=== PATIENT | male | born 1945 | race Caucasian/White ===

== ENCOUNTER → 2016-09-20 | Outpatient (CLI) | payer OTHER, MEDICARE | LOC: FIMAGING 09:07 | PROVIDERS: ATTEND Physician Assistant | DX: J18.9 Pneumonia, unspecified organism (principal) ==

== ENCOUNTER 2016-11-05 12:32 | Emergency (ER) | payer OTHER, MEDICARE ==
[2016-11-05 12:40] VITALS: RESP 16; TEMP 98.1
--- NOTE | 2016-11-05 14:04 | CPEKG ---
Heart Rate: 68 RR Interval: 882 P-R Interval: 192 QRSD Interval: 102 QT Interval: 412 QTC Interval: 439 P Rupert: 45 QRS Rupert: -34 T Wave Rupert: 4 EKG Severity - BORDERLINE ECG - EKG Impression: SINUS RHYTHM EKG Impression: LEFT AXIS DEVIATION EKG Impression: BORDERLINE T ABNORMALITIES, ANTERIOR LEADS Electronically Signed By: Tanner Palmer 05-Nov-2016 14:34:52
--- NOTE | 2016-11-05 14:10 | EDPHY ---
H & P Stated Complaint: Positional vertigo x 1 wk - Medical/Surgical History Hx Asthma: No Hx Chronic Respiratory Disease: No Hx Diabetes: No Hx Cardiac Disease: No Hx Renal Disease: No Hx Cirrhosis: No Hx Alcoholism: No Hx HIV/AIDS: No Hx Splenectomy or Spleen Trauma: No Other PMH: HTN, GERD, hypercholesterol, metabolic syndrome - Social History Smoking Status: Never smoked Time Seen by Provider: 11/05/16 14:10 Constitutional: Initial Vital Signs Temperature (C) 36.7 C 11/05/16 12:38 Heart Rate 79 11/05/16 12:38 Respiratory Rate 16 11/05/16 12:38 Blood Pressure 145/76 H 11/05/16 12:38 O2 Sat (%) 94 11/05/16 12:38 O2 Delivery Mode Room Air Allergies/Adverse Reactions: No Known Allergies Allergy (Verified 11/05/16 12:34) Home Medications: Medication Instructions Recorded Hydrochlorothiazide [HCTZ (*)] 25 mg PO DAILY 10/06/14 Zolpidem Tartrate [Ambien 5MG (*)] 10 mg PO HS PRN 10/06/14 amLODIPine BESYLATE [Norvasc 10 mg 10 mg PO DAILY 10/06/14 (*)] metFORMIN HCL [Glucophage 500 mg 1,000 mg PO BIDMEAL 10/06/14 (*)] Aspirin EC [Aspirin EC 81 mg (*)] 81 mg PO BID #60 tab 10/20/14 Meclizine HCl [Meclizine HCl 25 mg 25 mg PO BID #10 tab 11/05/16 (RX,OTC)] Medical Decision Making - Diagnostics Imaging Results: Imaging Impressions Brain MRI 11/05/16 14:14 Impression: 1. Mild cerebral cerebral atrophy. 2. No acute infarct, hemorrhage, hydrocephalus, mass effect, or herniation. 3. Several nonspecific hyperintense T2/FLAIR signal abnormalities in the white matter of bilateral cerebral hemispheres. Differential diagnosis includes moderate microvascular ischemic gliosis, post-infectious/post-inflammatory sequela, atypical demyelinating disease, or migraine-related sequela. 4. Old left frontal lobe infarct. 5. No acute brainstem or cerebellar infarct. Findings and recommendations discussed with Emergency Department physician, Giovanni Clements at 16:05 hour, 11/05/2016. Final report concurs with initial preliminary interpretation. ED Course/Re-evaluation: CHIEF COMPLAINT: Dizziness HISTORY OF PRESENT ILLNESS: This patient is a 71 year old male who presents to the Emergency Department complaining of acute dizziness beginning one week prior to arrival and remaining persistent over time. He describes his dizziness as exacerbated when moving around: "I'm having a hard time navigating in space. " He is able to move his head without exacerbating his symptoms. He denies associated nausea. He does have a history of dizziness but expresses that this episode is far worse. REVIEW OF SYSTEMS: A 10 point review of systems was performed and is negative with the exception of the elements mentioned in the history of present illness. PHYSICAL EXAM: HR 79, BP 145/76, O2 Sat 94, RR 16. Temp noted General Appearance: Alert, well hydrated, appropriate, and non-toxic appearing. Head: Atraumatic without scalp tenderness or obvious injury Eyes: Pupils equal, round, reactive to light and accommodation, EOMI, no trauma , no injection. Ears: Clear bilaterally, no perforation, normal landmarks Nose: Atraumatic, no rhinorrhea, clear. Throat: There is no erythema or exudates, no lesions, normal tonsils, mucus membranes moist. Neck: Supple, 2+ carotid upstroke, nontender, no lymphadenopathy. Respiratory: No retractions, no distress, no wheezes, and no accessory muscle use. Lungs are clear to auscultation bilaterally. Cardiovascular: Regular rate and rhythm, no murmurs, rubs, or gallops. Bilateral carotid, radial, dorsalis pedis, and posterior tibial pulses intact. Good capillary refill all extremities. Gastrointestinal: Abdomen is soft, nontender, non-distended, no masses, no rebound, no guarding, no peritoneal signs. Musculoskeletal: Normal active ROM of all extremities, atraumatic. Neurological: Alert, appropriate, and interactive. The patient has normal DTRs and non-focal cranial nerves, motor, sensory, and cerebellar exam. Skin: No rashes, good turgor, no nodules on palpation. Past medical history: Hypertension, hypercholesteremia, metabolic syndrome, GERD Past surgical history: Denies Family history: Non-contributory Social history: . Lives in [place]. DIFFERENTIAL DIAGNOSIS: The differential diagnosis for the patient's dizziness included but was not limited to peripheral and central causes of vertigo, orthostatic causes including dehydration, cardiogenic and neurogenic causes, and blood loss. EKG INTERPRETATION: The 12 lead EKG was interpreted by myself: Sinus rhythm, rate 68; no ischemic changes. See hard copy and/or "tracemaster" electronic copy for interpretation. MEDICAL DECISION MAKING: This 71 year old male presents complaining of dizziness that he describes as confusion regarding his "place in space." He has a history of dizziness spells but describes this as different - more severe and longer lasting - than previous episodes. He has no associated symptoms. Although movement of his entire body appears to exacerbate his symptoms, movement of his head does not exacerbate his dizziness. Given this, will proceed to treat with Meclizine and proceed with MRI of the brain to rule out cerebellar etiology. 25mg PO Meclizine HCL administered. (Tanner Palmer) 1614: This patient was signed over to me at 3:00 p.m. shift change. Patient is pending MRI results of his brain. These were called to me by Dr. Menon. The MRI brain for posterior circulation stroke or sober stroke is negative there is no acute bleed or infarct. I did go and speak with the patient he does feel comfortable going home with meclizine. I do recommend he follows up with his primary care doctor a possible ENT referral for vertigo. He is comfortable this plan. (Giovanni Clements) - Data Points Laboratory Results: Laboratory Results 11/05/16 14:35 11/05/16 14:35 11/05/16 11/05/16 14:35 14:35 WBC 5.62 10^3/uL 10^3/uL (3.80-9.50) RBC 4.96 10^6/uL 10^6/uL (4.40-6.38) Hgb 16.1 g/dL g/dL (13.7-17.5) Hct 45.2 % % (40.0-51.0) MCV 91.1 fL fL (81.5-99.8) MCH 32.5 pg pg (27.9-34.1) MCHC 35.6 g/dL g/dL (32.4-36.7) RDW 12.5 % % (11.5-15.2) Plt Count 167 10^3/uL 10^3/uL (150-400) MPV 10.4 fL fL (8.7-11.7) Neut % (Auto) 68.2 % % (39.3-74.2) Lymph % (Auto) 19.4 % % (15.0-45.0) Andrew % (Auto) 9.8 % % (4.5-13.0) Eos % (Auto) 1.8 % % (0.6-7.6) Baso % (Auto) 0.4 % % (0.3-1.7) Nucleat RBC Rel Count 0.0 % % (0.0-0.2) Absolute Neuts (auto) 3.84 10^3/uL 10^3/uL (1.70-6.50) Absolute Lymphs (auto) 1.09 10^3/uL 10^3/uL (1.00-3.00) Absolute Monos (auto) 0.55 10^3/uL 10^3/uL (0.30-0.80) Absolute Eos (auto) 0.10 10^3/uL 10^3/uL (0.03-0.40) Absolute Basos (auto) 0.02 10^3/uL 10^3/uL (0.02-0.10) Absolute Nucleated RBC 0.00 10^3/uL 10^3/uL (0-0.01) Immature Gran % 0.4 % % (0.0-1.1) Immature Gran # 0.02 10^3/uL 10^3/uL (0.00-0.10) Sodium 137 mEq/L mEq/L (134-144) Potassium 4.0 mEq/L mEq/L (3.5-5.2) Chloride 99 mEq/L mEq/L (97-110) Carbon Dioxide 26 mEq/l mEq/l (22-31) Anion Gap 12 mEq/L mEq/L (8-16) BUN 16 mg/dL mg/dL (7-23) Creatinine 1.0 mg/dL mg/dL (0.7-1.3) Estimated GFR > 60 Glucose 99 mg/dL mg/dL (70-100) Calcium 9.8 mg/dL mg/dL (8.5-10.4) Medications Given: Discontinued Medications Meclizine HCl (Meclizine Hcl) 25 mg PO EDNOW ONE Stop: 11/05/16 14:15 Last Admin: 05/08/17 14:42 Dose: 25 mg Departure - Departure Disposition: Home, Routine, Self-Care Clinical Impression: Vertigo Condition: Good Instructions: Vertigo (ED) Additional Instructions: 1. Take 25mg Meclizine HCL every 6-8 hours as needed for dizziness. 2. Follow-up with your primary care provider for further evaluation if your symptoms do not resolve in the next 3-5 days. 3. Return to the Emergency Department with severe headache, uncontrollable vomiting, weakness, slurred speech, or for other serious concerns. Referrals: Skyla Churchill MD [Primary Care Provider] - As per Instructions Prescriptions: Meclizine HCl [Meclizine HCl 25 mg (RX,OTC)] 25 mg PO BID #10 tab Report Scribed for: Tanner Palmer Report Scribed by: Yuni Jackson Date of Report: 11/05/16 Time of Report: 14:11
[2016-11-05] MEDS ORDERED: MECLIZINE HCL 25 MG TAB PO ONE (14:14)
[2016-11-05 14:43] LABS: % IMMATURE GRANULYOCYTES 0.4 % (0.0-1.1); ABSOLUTE IMMATURE GRANULOCYTES 0.02 10^3/uL (0.00-0.10); ADD DIFF? NO; ADD MORPH? NO; ADD SCAN? NO; ATYPICAL LYMPHOCYTE FLAG 0 (0-99); FRAGMENT RBC FLAG 0 (0-99); HEMATOCRIT 45.2 % (40.0-51.0); HEMOGLOBIN 16.1 g/dL (13.7-17.5); LEFT SHIFT FLG 0 (0-99); LIPEMIA HEMOLYSIS FLAG 90 (0-99); MEAN CELL HEMOGLOBIN 32.5 pg (27.9-34.1); MEAN CELL HEMOGLOBIN CONCENTR. 35.6 g/dL (32.4-36.7); MEAN CELL VOLUME 91.1 fL (81.5-99.8); MEAN PLATELET VOLUME 10.4 fL (8.7-11.7); PLATELET CLUMPS FLAG 0 (0-99); PLATELET COUNT 167 10^3/uL (150-400); RED BLOOD CELL COUNT 4.96 10^6/uL (4.40-6.38); RED CELL DISTRIBUTION WIDTH 12.5 % (11.5-15.2)
[2016-11-05 15:05] VITALS: O2SAT 91
[2016-11-05 15:05] LABS: ANION GAP 12 mEq/L (8-16); CALCIUM 9.8 mg/dL (8.5-10.4); CARBON DIOXIDE 26 mEq/l (22-31); CHLORIDE 99 mEq/L (97-110); GLOMERULAR FILTRATION RATE > 60; GLUCOSE 99 mg/dL (70-100); SODIUM 137 mEq/L (134-144)
[2016-11-05 16:34] VITALS: BP 151/86; PULSE 76
== END 2016-11-05 16:33 | disposition home or self-care (01) ==
DX: R42 Dizziness and giddiness (principal); I10 Essential (primary) hypertension

== ENCOUNTER → 2017-12-02 | Outpatient (CLI) | payer OTHER, MEDICARE | LOC: FIMAGING 15:33 | PROVIDERS: ATTEND Family Medicine | DX: M16.12 Unilateral primary osteoarthritis, left hip (principal); M75.92 Shoulder lesion, unspecified, left shoulder ==

== ENCOUNTER 2018-06-16 10:48 | Inpatient (IN) | payer OTHER, MEDICARE ==
--- NOTE | 2018-06-15 22:35 | PDGENHP ---
History & Physical Chief Complaint: left shoulder pain History of Present Illness: eloina is a pleasant 72 yo male, presenting today for left total shoulder arthroplasty due to shoulder arthritis by dr. jon Pertinent Past, Social, Family History: SOC: denies smoking, denies rec drugs, etoh occasional. FH: father: malignant neoplastic disase, DM. PMH: arthritis, DM, hernia, HTN, UTI, hx of melanoma. allergies: diclofenac Relevant Physical Exam: L shoulder: 60 ff, 5-/5 empty can, negative bear hug, skin looks healthy, nvgi A/P Assessment: 72 yo M presenting today for left total shoulder arthroplasty by dr. jon due to left total shoulder osteoarthritis -proph: b/l mike cortes, b/l scd's, incentive spirometry -Cefazolin 2gram iv once pre operative -clean/prep/shave surgical site -admit overnight for observation
--- NOTE | 2018-06-16 08:55 | PDHPUP ---
History & Physical Update H&P update statement: This history and physical update is based on an assessment of the patient which was completed after admission or registration (within 24 hours), but prior to the surgery/procedure. H&P update: H&P reviewed & patient examined, no change in patient's condition since H&P completed
[2018-06-16] MEDS ORDERED: LR 1,000 ML IV ONE (11:08)
[2018-06-16] MEDS ORDERED: ceFAZolin 2 GM/DEXTROSE 100 ML IV ONE (11:08)
[2018-06-16] MEDS ORDERED: CEFAZOLIN 2 GM/DEXTROSE/100 ML BAG IV ONE (11:23)
[2018-06-16] MEDS ORDERED: ROPIVACAINE HCL 20 MG/10 ML INJ EP ONE ×2 (11:25→12:30)
[2018-06-16] MEDS ORDERED: EPINEPHrine 1 MG/ML INJ ONE (12:30)
[2018-06-16] MEDS ORDERED: MIDAZOLAM 2 MG/2 ML VIAL IVP ONE (12:45)
[2018-06-16] MEDS ORDERED: MIDAZOLAM 2 MG/2 ML VIAL ONE (12:45)
--- NOTE | 2018-06-16 12:47 | PDANEPAE ---
ANE Past Medical History - Cardiovascular History Hx Hypertension: Yes Hx Arrhythmias: No Hx Chest Pain: No Hx Coronary Artery / Peripheral Vascular Disease: No Hx CHF / Valvular Disease: No Hx Palpitations: No Cardiovascular History Comment: HEART MURMUR IN CHILDHOOD - Pulmonary History Hx COPD: No Hx Asthma/Reactive Airway Disease: No Hx Recent Upper Respiratory Infection: No Hx Oxygen in Use at Home: No Hx Sleep Apnea: No Sleep Apnea Screening Result - Last Documented: Positive - Neurologic History Hx Cerebrovascular Accident: No Hx Seizures: No Hx Dementia: No - Endocrine History Hx Diabetes: No Obesity: moderate Endocrine History Comment: METABOLIC SYNDROME - METFORMIN - Renal History Hx Renal Disorders: No - Liver History Hx Hepatic Disorders: No - Neurological & Psychiatric Hx Hx Neurological and Psychiatric Disorders: No - Cancer History Hx Cancer: Yes Cancer History Comment: MELANOMA ABDOMEN - Congenital Disorder History Hx Congenital Disorders: No - GI History GERD: no Hx Gastrointestinal Disorders: Yes Gastrointestinal History Comment: OCCAS INDIGESTION - Other Health History Other Health History: NEG - Chronic Pain History Chronic Pain: No - Surgical History Prior Surgeries: L HIP REPLACEMENT. FUSION LUMBAR. MELANOMA ABDOMEN REMOVED. UMB HERNIA. SKIN CA REMOVED FACE ANE Review of Systems Review of Systems: - Exercise capacity METS (RN): 5 METS ANE Patient History - Allergies Allergies/Adverse Reactions: diclofenac Allergy (Verified 06/11/18 17:12) Rash - Home Medications Home medications: home medication list seen and reviewed Home Medications: Hydrochlorothiazide [HCTZ (*)] 25 mg PO DAILY 10/06/14 [Last Taken 06/13/18] amLODIPine BESYLATE [Norvasc 10 mg (*)] 10 mg PO DAILY 10/06/14 [Last Taken 09:00] metFORMIN HCL [Glucophage 500 mg (*)] 1,000 mg PO BIDMEAL 10/06/14 [Last Taken 06/13/18] Herbals/Supplements -Info Only 1 ea PO DAILY 06/04/18 [Last Taken 06/11/18] Ibuprofen [Motrin (*)] 200 - 600 mg PO DAILY PRN 06/04/18 [Last Taken 06/13/18] - NPO status NPO Status: no food or drink >8 hours NPO Since - Liquids (Date): 06/15/18 NPO Since - Liquids (Time): 18:00 NPO Since - Solids (Date): 06/15/18 NPO Since - Solids (Time): 18:00 - Anes Hx Anes Hx: no prior problems - Smoking Hx Smoking Status: Never smoked - Family Anes Hx Family Hx Anesthesia Complications: NEG ANE Labs/Vital Signs - Vital Signs Blood Pressure: 150/81 Heart Rate: 59 Respiratory Rate: 16 O2 Sat (%): 92 Height: 167.64 cm Weight: 72.575 kg ANE Physical Exam - Airway Neck exam: FROM Mallampati Score: Class 2 Mouth exam: normal dental/mouth exam - Pulmonary Pulmonary: no respiratory distress, no rales or rhonchi, clear to auscultation - Cardiovascular Cardiovascular: regular rate and rhythym, no murmur, rub, or gallop - ASA Status ASA Status: II ANE Anesthesia Plan Anesthesia Plan: GA w LMA Regional Anesthesia: single shot NB, interscalene BP NB (Pt declines continuous nerve block.)
[2018-06-16] MEDS ORDERED: BUPIVACAINE/EPI 0.25% 30 ML SDV ONE (12:54)
[2018-06-16] MEDS ORDERED: fentaNYL 100 MCG/2 ML INJ ONE ×3 (12:58→16:39)
[2018-06-16] MEDS ORDERED: DEXAMETHASONE 4 MG/ML VIAL ONE ×2 (12:59)
[2018-06-16] MEDS ORDERED: PROPOFOL 200 MG/20 ML VIAL ONE (12:59)
[2018-06-16] MEDS ORDERED: ONDANSETRON 4 MG/2 ML VIAL ONE (13:01)
[2018-06-16] MEDS ORDERED: ROCURONIUM 50 MG/5 ML VIAL ONE (13:53)
[2018-06-16] MEDS ORDERED: LABETALOL HCL 20 MG/4 ML INJ IVP PRN (15:03)
[2018-06-16] MEDS ORDERED: ENALAPRILAT DIHYDRATE 1.25 MG/ML VIAL IVP PRN (15:03)
[2018-06-16] MEDS ORDERED: DIAZEPAM 5 MG/ML 1 ML SYR IVP PRN (15:03)
[2018-06-16] MEDS ORDERED: ONDANSETRON 4 MG/2 ML VIAL IVP PRN ×2 (15:03→15:21)
[2018-06-16] MEDS ORDERED: oxyCODONE IR 5 MG TAB PO PRN (15:03)
[2018-06-16] MEDS ORDERED: LR 500 ML IV PRN (15:03)
[2018-06-16] MEDS ORDERED: NALOXONE HCL 0.4 MG/ML INJ IVP PRN (15:03)
[2018-06-16] MEDS ORDERED: ACETAMINOPHEN 500 MG TAB PO PRN (15:03)
[2018-06-16] MEDS ORDERED: PROMETHAZINE HCL 25 MG/ML INJ IVP PRN (15:03)
[2018-06-16] MEDS ORDERED: HYDROCODONE/APAP 5/325 TAB PO PRN (15:03)
[2018-06-16] MEDS ORDERED: ACETAMINOPHEN 325 MG TAB PO PRN (15:21)
[2018-06-16] MEDS ORDERED: D5W 1/2 NS W/ 20 KCl/L 1,000 ML IV SCH (15:30)
--- NOTE | 2018-06-16 15:31 | POSTOPPROG ---
Post Op Note Date of Operation: 06/16/18 Surgeon: Lee Yee Steam Shovel Operator: aleja león pa-c Anesthesia: LMA Pre-op Diagnosis: left shoulder arthritis Post-op Diagnosis: left shoulder arthritis Procedure: left total shoulder arthroplasty Inf/Abcess present in the surg proc area at time of surgery?: No EBL: 50-100 Complications: none
--- NOTE | 2018-06-16 15:47 | POSTANESTH ---
Post Anesthetic Evaluation Cardiovascular Status: Normal, Stable, Similar to Pre-Op Cond Respiratory Status: Normal, Stable, Similar to Pre-op Cond. Level of Consciousness/Mental Status: Can Participate in Eval, Alert and Oriented Pain Control: Adequate, Prn Tx Ordered Nausea/Vomiting Control: Adequate, Prn Tx Ordered Complications Possibly Related to Anesthesia: None Noted
[2018-06-16] MEDS ORDERED: OXYCODONE/APAP 5/325 TAB ONE ×2 (16:10→17:05)
[2018-06-16] MEDS: fentaNYL 100 MCG/2 ML INJ IVP PRN ×4 (16:14→17:03)
[2018-06-16] MEDS: OXYCODONE/APAP 5/325 TAB PO PRN ×2 (16:19→20:15)
--- NOTE | 2018-06-16 16:26 | GOP ---
DATE OF OPERATION: SURGEON: Lee Yee MD TRANSPORTATION MECHANIC: Robb Newman PA-C., medically required for positioning of the arm during total elpidio ulder. Careful retraction of vital neurovascular structures including the axillary nerve. PREOPERATIVE DIAGNOSIS: Left shoulder osteoarthritis. POSTOPERATIVE DIAGNOSIS: Left shoulder osteoarthritis. PROCEDURE PERFORMED: 1. Left total shoulder replacement. 2. Open loose body removal x4, 1 x 2 cm. 3. Biceps tenodesis. FINDINGS: ESTIMATED BLOOD LOSS: Minimal. INDICATIONS: 72-year-old male with end-stage left shoulder osteoarthritis. Clinical radiographic an d advanced imaging confirm cuff intact with end-stage osteoarthritis. He is MSSA positive. ID recom mended Hibiclens and mupirocin 3-5 days prior to surgery. He adhered to this. Medically cleared for surgery. DESCRIPTION OF PROCEDURE: The patient identified in the preoperative holding area. Consent, lateral ity, and preoperative antibiotics were confirmed and delivered. All questions were answered. The le ft shoulder was identified. His was at the bedside for questions and answers. The patient had an interscalene block. Beach chair position. 30-degree head of bed. All extremitie s well padded. Left upper extremity prepped and draped in the usual sterile fashion. Surgical time- out was performed. Standard Ioban diaper draping. Deltopectoral incision. Found the cephalic vein medially. I took this with the deltoid laterally. I cleaned up the clavipectoral fascia. A Kobel retractor freed up the deltoid adhesions. Found the subscap. Found the biceps. Released the pec tendon about 1.5 cm. Did a biceps tenodesis to the rem ainder of the pec tendon. Did a biceps tenotomy. Opened up the rotator interval. Did a lesser tube rosity osteotomy with a large curved osteotome. Released the capsule. Put a Fukuda. Found the axil cedric nerve. Protected it with Zandra retractor. Did an inferior capsular release. Progressive public health nutritionist al rotation. Discovered many loose bodies on the inferior axillary recess that were retrieved up to 2 cm. We did an osteophytectomy. Found the anatomic neck. Did a humeral neck osteotomy to its norm al anatomic neck, preserving the rotator cuff into the bare spot. We prepped the humerus up to a 10 broach, placed a humeral head protector. The arm was taken out of the Negrete. Placed on a padded Hanna. We finished off the inferior capsulotomy and posterior capsulotomy. We put a Fukuda. We did a labrectomy. We prepped the glenoid with a cannulated Arthrex device. Trialed and then cemented i n a large glenoid. We reduced the head, placed back in the Negrete del cid, dislocated the head, again, and then took o ut the humeral head protector. Drilled 2 holes in the bicipital groove, placed loops of suture throu gh that with the subscap compression technique by Arthrex. We used the pencil impactor and then the head impactor. Found the natural osteotomy. We locked this into place. Trialed a humeral head and found a 54 worked well. Thus we chose the real humeral head with the most offset posterolaterally. We resected the remainder of the osteophytes. Washed out the wound with 500 cc of warm normal saline . Repaired the subscap with a subscap compression technique by Arthrex, top knot, bottom knot, diago nal knots, and medial knots. We closed the rotator interval with 2 [id number] stitches, #2 Fibe rWire. Subcutaneous tissue closure with 3-0 Monocryl, 3-0 Prolene. 20 cc of 0.2% ropivacaine were u sed. Mastisol, Steris, Xeroform, Mepilex dressing applied. IMPLANTS USED: An Arthrex #10 stem, large glenoid with a 54 head. COMPLICATIONS: None. DISPOSITION: Extubated to PACU in stable condition. /[id number]/MODL
[2018-06-16] MEDS ORDERED: oxyCODONE IR 5 MG TAB ONE (17:07)
--- NOTE | 2018-06-16 18:56 | PDMN ---
Medical Necessity Medical necessity: Pt meets IP criteria as of 06/16/2018 per and KURT[facility] S-[id number] shoulder arthroplasty; Medicare IP only procedure
[2018-06-16] MEDS: ceFAZolin 2 GM/DEXTROSE 100 ML IV SCH (20:15)
[2018-06-16] MEDS: DOCUSATE SODIUM 100 MG CAP PO SCH (20:16)
[2018-06-17] MEDS ORDERED: TEMAZEPAM 15 MG CAP PO PRN (00:05)
[2018-06-17] MEDS: OXYCODONE/APAP 5/325 TAB PO PRN ×4 (00:16→12:15)
[2018-06-17] MEDS: ceFAZolin 2 GM/DEXTROSE 100 ML IV SCH (04:32)
--- NOTE | 2018-06-17 08:20 | PDDCSUM ---
Discharge Summary Discharge Summary: Admitted 06/16/18 Discharged 06/17/19 pre op diagnosis: left shoulder arthritis post op diagnosis: left shoulder arthritis procedure: left total shoulder arthroplasty by dr. 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, he reports the pain is controlled with pain meds which the nurse should be bringing him his next dose soon, denies any fevers/chills, denies cp/sob, denies falls/injuries, reports he is wearing his sling as instructed, voiding without issues, hasn't had a bowel movement yet, but passing gas O: sling in place, dressings c/d/i, no visible drainage or signs of infection, appropriately ttp, no shoulder rom assessed, full wrist/digit rom w/o pain, grossly nvid w/ resistance against wrist extension A/P 72 yo male s/p left total shoulder arthroplasty by dr jon on 06/17, pod #1 , doing well w/o issues -plan for discharge today if tolerating oral pain meds, cleared by pt/ot -LUE: 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
[2018-06-17] MEDS ORDERED: ENOXAPARIN 40 MG/0.4 ML SYR SC SCH (09:00)
[2018-06-17] MEDS: DOCUSATE SODIUM 100 MG CAP PO SCH (09:28)
--- NOTE | 2018-06-17 11:02 | ASDISCHSUM ---
Discharge Information Plan Status:Home with No Needs Medically Cleared to Leave:06/16/2018 Discharge Date:06/16/2018 CM D/C Disposition:Home, Routine, Self-Care ADT D/C Disposition:Home, Routine, Self-Care Projected Discharge Date:06/17/2018 12:00 AM Transportation at D/C:Family Discharge Delay Reason: Follow-Up Date:06/17/2018 12:00 AM Discharge Slot: Final Diagnosis: Placement Information Patient Contact Information Contact Name:KB Relationship: [address] City:[place] Alternate Phone: [facility]/Zip Code:[place] [address] Email: Financial Information Financial Class:Medicare Primary Plan Desc:MEDICARE INPATIENT Primary Plan Number:[id number] Secondary Plan Desc:JARETT/TAI SUPPLEMENT Secondary Plan Number:[id number] Assessment Information LACE LACE Length of stay for Answers: Less than 1 day current admission Acuity / Level of Answers: Yes Care: Did the patient have an inpatient admission? Comorbidities - select Answers: Other Notes: HTN all that apply # of Emergency department Answers: 0 visits in the last 6 months Score: 4 Date Signed: 06/17/2018 11:00 AM Electronically Signed By:ADAN Pham Case Management Discharge Plan Note Case Management Discharge Discharge Order Complete? Answers: Yes Patient to Obtain Answers: via Family Medications Transportation Arranged Answers: Family/Friends Discharge Comments Notes: Pt being discharged independent. No CM needs identified. Family to transport. Date Signed: 06/17/2018 11:02 AM Electronically Signed By:ADAN Pham Intervention Information Intervention Type:*Incorrect Registration Date of Service:06/16/2018 06:50 PM Patient Type:Observation Staff Member:Zully Shelley Hours: Discipline: Severity: Comment:
[2018-06-17] MEDS ORDERED: PNEUMOC 13-VAL CONJ-DIP CRM/PF 0.5 ML SYR (PREVNAR 13) IM ONE (12:26)
[2018-06-17 13:05] VITALS: BP 136/71
== END 2018-06-17 15:14 | disposition home or self-care (01) | DRG 483 ==
LOC: F3N 10:48 → OBSVTOIN 15:24 → F3N 17:27
PROVIDERS: ADMIT Orthopaedic Surgery; ATTEND Orthopaedic Surgery
PROC: 0RRK0JZ Replacement of Left Shoulder Joint with Synthetic Substitute, Open Approach (ICD-10-PCS; principal; 2018-06-16 12:45)
DX: M19.012 Primary osteoarthritis, left shoulder (principal)
CPT/HCPCS: 97116-GP; 97161-GP; 97166-GO; 97535-GO; C1713; G0009; G8978-GP-CK; G8979-GP-CI; G8987-GO-CJ; G8988-GO-CJ; G8989-GO-CJ; J0171; J0690; J1100; J1650; J2250; J2270; J2405; J2704; J2795; J3010